=== PATIENT | female | born 1945 | race Hispanic/Latino ===

== ENCOUNTER → 2021-03-17 | Outpatient (CLI) | payer OTHER ==
[~2021-03-17] MED LIST: ASPI81TA40 PO; ATOR20TA65 PO; FURO20TA4 PO; ISOS30TA92 PO; LISI5TAB21 PO; METO25TA6 PO; NAPR220C62 PO; PRAS10TA6 PO
== END | disposition home or self-care (01) ==
LOC: SHCH 09:46
PROVIDERS: ATTEND Internal Medicine Cardiovascular Disease
DX: I87.2 Venous insufficiency (chronic) (peripheral) (principal)
CPT/HCPCS: 93971